=== PATIENT | female | born 1995 | race Hispanic/Latino ===

== ENCOUNTER 2019-05-05 11:40 | Emergency (ER) | payer OTHER ==
[~2019-05-05] VITALS: Ht 160 cm; Wt 93.0 kg
--- OUTSIDE RECORDS SUMMARY | 2019-05-05 11:42 | XMS REPORT | Clinical Summary ---
Author Author [facility] Organization [facility] Address Unknown Phone Unavailable Care Team Providers Care Glove Examiner Name Role Phone Preston Frank MD PCP Allergies Comments Active Allergy Reactions Severity Noted Date Penicillins Hives 08/04/2014 Medications End Date Status Medication Sig Dispensed Refills Start Date Active montelukast (SINGULAIR) TAKE 1 TABLET 90 tablet 0 10 mg tabletIndications: BY MOUTH 9 Acute allergic rhinitis NIGHTLY 08/10/2018 norethindrone ac-eth Take 1 tablet 63 tablet 3 estradiol (LOESTRIN 08/26, by mouth 03 27,) 1-20 mg-mcg per daily. tabletIndications: Well woman exam 11/13/2018 Discontinued (Reorder) montelukast (SINGULAIR) Take 1 tablet 30 tablet 2 10 mg tabletIndications: (10 mg total) 8 Acute allergic rhinitis, by mouth unspecified seasonality, nightly. unspecified trigger 02/08/2019 Discontinued (Reorder) montelukast (SINGULAIR) TAKE 1 TABLET 30 tablet 2 10 mg tabletIndications: BY MOUTH 9 Acute allergic rhinitis NIGHTLY Active Problems Problem Noted Date Obesity (BMI 30-39.9) 04/21/2017 KEMAL (generalized anxiety disorder) 04/21/2017 Encounters Care Team Description Date Type Specialty Preston Frank MD 03/27/2019 Telephone Internal Medicine Preston Frank MD Acute allergic rhinitis 02/08/2019 Refill Internal Medicine Preston Frank MD Acute allergic rhinitis 11/13/2018 Refill Internal Medicine Preston Frank MD Need for HPV vaccine (Primary Dx) 06/04/2018 Office Visit Internal Medicine after 05/04/2018 Immunizations Name Administration Dates Next Due FLUBLOK QUAD PF 04/03/2018 FLUZONE QUAD PF 04/21/2017 Gardasil-9 06/04/2018, 04/03/2018 PPD Test 04/03/2018 Tdap 04/03/2018 Family History Medical History Relation Name Comments Diabetes Father Sal Meseret Hypertension Mother Natasha Meseret Hypothyroidism Mother Natasha Meseret Relation Name Status Comments Father Sal Alive Meseret Mother Natasha Alive Meseret Social History Date Tobacco Use Types Packs/Day Years Used Never Smoker Smokeless Tobacco: Never Used Tobacco Cessation: Counseling Given: Yes Drinks/Week oz/Week Comments Alcohol Use 2 Standard drinks or equivalent 2.0 Yes Sex Assigned at Date Recorded Not on file Industry Job Start Date Occupation Not on file Not on file Not on file Travel End Travel History Travel Start No recent travel history available. Last Filed Vital Signs Not on file Plan of Treatment Health Maintenance Due Date Last Done Comments CERVICAL CANCER SCREENING 2017 CHLAMYDIA SCREENING 08/10/2018 08/10/2017 INFLUENZA VACCINE 03/07/2019 04/03/2018, 04/03/2018, 04/21/2017 Results Not on fileafter 05/04/2018 Insurance Type Payer Benefit Subscriber ID Effective Phone Address Plan / Dates Group [facility] UMR xxxxxxxxxxxx [id number] [employer] [place] JEANNA CARL Self Advance Directives For more information, please contact: [phone] Patient Lead Teacher Explanation Type Date Recorded Advance Directives, Living Will and Medical Power of Log Data Technician
[2019-05-05] MEDS ORDERED: SODIUM CHLORIDE 0.9% 1000ML 1,000 ML IV STA (11:45)
[2019-05-05] MEDS ORDERED: MORPHINE SULFATE INJ 4 MG/ML INJ 1ML IV STA (11:45)
[2019-05-05] MEDS ORDERED: ONDANSETRON HCL INJ 2MG/ML 2ML 2 MG/ML VIAL IV STA (11:45)
--- NOTE | 2019-05-05 12:12 | NUR ---
PT BROUGHT BACK TO ROOM 6 AT THIS TIME, REQUESTING SEVERAL TAMPONS, PROVIDED WITH 3 MAXI-PADS; PT ASSISTED TO STRETCHER, BED LOW/LOCKED, CALL LIGHT IN EASY REACH, WILL CONTINUE TO MONITOR.
[2019-05-05 12:18] LABS: BILIRUBIN,URINE NEGATIVE (NEGATIVE); CLARITY,URINE SL CLOUDY (CLEAR); KETONES,URINE NEGATIVE (NEGATIVE); LEUKOCYTE ESTERASE ,URINE NEGATIVE (NEGATIVE); NITRITE,URINE NEGATIVE (NEGATIVE); PROTEIN,URINE DIPSTICK TRACE (NEGATIVE); URINE UROBILINOGEN 0.2 mg/dL (0.2 - 1)
[2019-05-05 12:19] LABS: BASOPHILS # (AUTO) 0.1 (0.0-0.1); BASOPHILS % 0.9 % (0.0-1.0); COLOR,URINE STRAW (YELLOW); EOSINOPHILS # (AUTO) 0.2 (0.0-0.4); EOSINOPHILS % 1.2 % (0.0-6.0); HEMATOCRIT 43.6 % (34.2-44.1); HEMOGLOBIN 15.7 g/dL (12.0-16.0); LYMPHOCYTES # (AUTO) 2.9 (1.0-3.2); LYMPHOCYTES % 21.5 % (18.0-39.1); MEAN CORPUSCULAR HEMOGLOBIN 31.2 pg (28-32); MEAN CORPUSCULAR VOLUME 86.5 fL (81-99); MONOCYTES # (AUTO) 0.5 (0.2-0.8); MONOCYTES % 3.7 % (4.4-11.3); NEUTROPHILS # (AUTO) 9.9 (2.1-6.9); NEUTROPHILS % 72.3 % (38.7-80.0); PLATELET COUNT 365 x10e3/uL (140-360); RED BLOOD COUNT 5.04 x10e6/uL (3.6-5.1); RED CELL DISTRIBUTION WIDTH 11.6 % (11.7-14.4)
[2019-05-05 12:24] LABS: BACTERIA,URINE FEW /HPF; EPITHELIAL CELLS,URINE FEW /LPF; RBC,URINE >50 /HPF (0-5)
[2019-05-05 12:41] LABS: ALANINE AMINOTRANSFERASE 30 IU/L (0-55); ALBUMIN 3.9 g/dL (3.5-5.0); ALBUMIN/GLOBULIN RATIO 1.2 (0.8-2.0); ALKALINE PHOSPHATASE 72 IU/L (40-150); ANION GAP 15.5 mmol/L (8-16); BLOOD UREA NITROGEN 10 mg/dL (7-26); BUN/CREATININE RATIO 12 (6-25); CALCIUM 9.9 mg/dL (8.4-10.2); CARBON DIOXIDE 22 mmol/L (22-29); CHLORIDE 106 mmol/L (98-107); CREATININE, SERUM 0.83 mg/dL (0.57-1.11); EST GLOMERULAR FILTRATION RATE > 60 ML/MIN (60-); GLUCOSE 126 mg/dL (74-118); LIPASE 11 U/L (8-78); POTASSIUM 3.5 mmol/L (3.5-5.1); SODIUM 140 mmol/L (136-145)
[2019-05-05] MEDS ORDERED: KETOROLAC TROMETHAMINE 30 MG/ML VIAL IV STA (13:06)
--- NOTE | 2019-05-05 13:55 | Diagnostic Imaging Report ---
EXAM: CT of the abdomen and pelvis WITH contrast HISTORY: Severe abdominal pain COMPARISON: None. TECHNIQUE: The abdomen and pelvis were scanned utilizing a multidetector helical scanner. Coronal and sagittal reformats are provided. PROTOCOL: Routine IV CONTRAST: 100 cc of Isovue-370. ORAL CONTRAST: None, which limits sensitivity and specificity of the exam. RADIATION DOSE: Total DLP: 683.78 mGy*cm Estimated effective dose: (DLP x 0.015 x size factor) Dose modulation, iterative reconstruction, and/or weight based adjustment of the mA/kV was utilized to reduce the radiation dose to as low as reasonably achievable. COMPLICATIONS: None FINDINGS: LOWER THORAX: Unremarkable. HEPATOBILIARY: No mass. No biliary dilation. No calcified gallstone. SPLEEN: No splenomegaly. PANCREAS: No focal masses or ductal dilatation. ADRENALS: No discrete adrenal nodule. KIDNEYS/URETERS: No hydronephrosis, stones, or definite solid mass lesions. PELVIC ORGANS/BLADDER: The uterus is anteflexed. GI TRACT: No dilation or wall thickening identified. The appendix is normal. PERITONEUM / RETROPERITONEUM: No free air or fluid. LYMPH NODES: No pathologically enlarged lymph node. VESSELS: Unremarkable. BONES and JOINTS: No aggressive osseous lesion or acute fracture. SOFT TISSUES: Unremarkable. IMPRESSION: No acute CT abnormality of the abdomen or pelvis. Signed by: Dr. Shane Farley D.O., M.M.M. on 05/05/2019 1:51 PM
--- NOTE | 2019-05-05 14:20 | NUR ---
PT APPEARS TO BE AT MORE EASE, STATES THAT MEDICATION HELPED BRING PAIN DOWN TO 4/10, UPDATED ON PLAN OF CARE AND PENDING SONOGRAM, VERBALIZED UNDERSTANDING; FAMILY AT BEDSIDE PROVIDED WITH REFRESHMENTS.
--- NOTE | 2019-05-05 16:02 | Diagnostic Imaging Report ---
TECHNIQUE: Transvaginal ultrasound imaging of the pelvis was performed. Color Doppler evaluation was utilized to supplement the evaluation. HISTORY: Pelvic pain, rule out ovarian torsion COMPARISON: None available. DISCUSSION: UTERUS: The uterus measures 7.2 x 3.1 x 4.8 cm. The endometrial echocomplex measures 0.6 cm. OVARIES/ADNEXA: Arterial and venous flow visible in both ovaries. Small bilateral ovarian follicles. The right ovary measures 3.2 x 2.3 x 2.4 cm. The left ovary measures 4.4 x 1.9 x 2.4 cm. PELVIS: No free fluid. IMPRESSION: 1. No acute sonographic abnormality. 2. Specifically, no evidence of ovarian torsion. Signed by: Dr. Shane Farley D.O., M.M.M. on 05/05/2019 3:58 PM
[2019-05-05] MEDS ORDERED: IOPAMIDOL 370 MG/ML 200 ML INFUS..BTL INJ ONE (16:36)
[2019-05-05] MEDS ORDERED: SODIUM CHLORIDE 0.9% 50ML 50 ML ONE (16:36)
[2019-05-05 17:01] VITALS: BP 105/73
== END 2019-05-05 17:00 | disposition home or self-care (01) ==
LOC: ER 11:40
DX: R10.31 Right lower quadrant pain (principal); R11.0 Nausea
CPT/HCPCS: 36415; 74177; 76830; 80053; 81001; 81025; 83690; 85025; 93976; 99284; J1885; J2270; J2405; J7030; Q9967